=== PATIENT | female | born 1965 | race Caucasian/White ===

== ENCOUNTER → 2016-09-08 10:24 | Day surgery (SDC) | payer SELFPAY ==
[~2016-09-08 10:24] MED LIST: Buffered Lidocaine 1% SYR 3ML* 3 ML/SYR SYRINGE INTRADERM ONE; Bupivacaine 0.25% EPI 200,000* 30 ML SDV ONE; Dexamethasone IV* 4 MG/ML 1 ML (4 MG) ONE; EPHEDrine (Pressors)* 50 MG/ML VIAL ONE; Glycopyrrolate IV* 0.2 MG/ML 1 ML VIAL ONE; Ketorolac INJ* 30 MG/ML 1 ML VIAL ONE; Lidocaine 2% PF * 5 ML VIAL ONE; Neostigmine Methylsulfate* 2 MG/2 ML SYRINGE ONE; Ondansetron INJ* 2 MG/ML VIAL IV PRN; Ondansetron INJ* 2 MG/ML VIAL ONE; Propofol* 10 MG/ML 20 ML BTL IV PUSH ONE; Rocuronium* 10 MG/ML VIAL ONE; Sodium Citrate/Citric Acid* 15 ML UDC ONE; Sodium Citrate/Citric Acid* 15 ML UDC PO ONE; ceFAZolin 2 GM PREMIX (*) 2 GM/50 ML BAG IVPB ONE; fentaNYL* 50 MCG/ML 2 ML VIAL (100 MCG VIAL) IV PRN; fentaNYL* 50 MCG/ML 2 ML VIAL (100 MCG VIAL) ONE; oxyCODONE/Acetamin 5/325 MG* TAB ONE; oxyCODONE/Acetamin 5/325 MG* TAB PO PRN
--- NOTE | 2016-09-08 13:55 | SURGPN ---
Brief Operative Note - Surgery Procedures: OPERATIVE REPORT PRE-OP: Cholelthiasis with right upper quadrant abdominal pain POST-OP: same PROCEDURE: Laparoscopic cholecystectomy SURGEON: MD Byron ANESTHESIA: General with Dr. Pitts ASST: ELIZABETH Banegas; ELIZABETH Small student IVF: 1 liter of crystalloid EBL: min SPECIMEN: gallbladder DRAIN: none WOUND CLASS: 2 COMPLICATIONS: none TO PACU
[2016-09-08 17:21] VITALS: BP 101/52
--- NOTE | 2016-09-09 03:04 | OP ---
DATE OF OPERATION: 09/08/16 [facility] DATE OF : 61 SURGEON: John Matthews MD [employer] D[employer]ING MACHINE OPERATOR: ELIZABETH Wade ANESTHESIOLOGIST: Dr. Jacobo. ANESTHESIA: General with local anesthetic. PRE-OP DIAGNOSES: Right upper quadrant abdominal pain and cholelithiasis. POST-OP DIAGNOSES: Right upper quadrant abdominal pain and cholelithiasis. OPERATIVE PROCEDURE: Laparoscopic cholecystectomy. ESTIMATED BLOOD LOSS: Minimal. IV FLUIDS: 1 L of crystalloids. SPECIMEN: Gallbladder. WOUND CLASSIFICATION: II. DRAINS: None. COMPLICATIONS: None. DESCRIPTION OF PROCEDURE: Written informed consent was obtained, the abdomen was marked with indelible ink and preoperative antibiotics were administered. The patient was taken to the operating room, placed in the supine position. Sequential compression devices and a warming blanket were applied. The abdomen was prepped and draped in the usual sterile fashion. Time-out verification was completed. Next, a small transverse incision was made just above the umbilicus, the midline , the peritoneal cavity was entered under direct vision. A 12-mm blunt port was inserted and the abdomen was insufflated to 15 mmHg. Under direct vision, an 11-mm epigastric port was placed and two 5-mm ports were placed to the right side of the abdominal wall. The gallbladder was identified. There were some fatty adhesions from the omentum and right upper quadrant, which involved almost the entire length of the gallbladder, but these were chronic, did not appear to be evidence of acute inflammation. The gallbladder wall was normal in thickness and bluish and Benton 's egg blue. These flimsy adhesions were then taken down and infundibulum of the gallbladder was identified. The peritoneum along the medial and lateral aspects of this area was then taken down. I was able to identify the cystic duct and arteries as I entered the gallbladder. Clearly, I was able to dissect these free using the critical view technique by taking a significant portion of the inferior part of the gallbladder off the liver bed to assure myself that these were the only two structures entering the gallbladder. The cystic duct and artery were appeared to be of normal caliber. They were doubly clipped and divided. The gallbladder itself was then removed from the liver bed using cautery and placed in Endo catch bag and brought out through the umbilical incision. Right upper quadrant was irrigated with saline and hemostasis was assured. All ports were removed under direct vision of the camera and here there was noted to be some bleeding from the 11-mm epigastric port. I did place two 0 Polysorb suture placed with the Endo Close needle full through and through facial stitches to obtain hemostasis without difficulty. Two 5-mm ports were then removed without evidence of any bleeding. The umbilical fascia was then closed with interrupted 0 Polysorb suture, but the skin was approximated with subcuticular 4-0 Polysorb suture. The Steri- Strips were applied. The patient tolerated the procedure well, was taken to the recovery room in stable condition. CC: Edward Montanez NP * [id number]/[facility] #: [id number] MTDD
== END | disposition home or self-care (01) ==
LOC: OR 10:24
PROVIDERS: ATTEND Surgery
DX: K80.10 Calculus of gallbladder with chronic cholecystitis without obstruction (principal)
CPT/HCPCS: 88304; A9270-GY; J0690; J1100; J1885; J2405; J2704; J3010